=== PATIENT | male | born 1945 | race Caucasian/White ===

== ENCOUNTER 2018-05-20 19:06 | Inpatient (IN) ==
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
[2018-05-20 19:48] LABS: BASO# 0.02 X1000 (0.0-0.2); BASO% 0.2 % (0.0-0.8); EOS# 0.02 X1000 (0.0-0.7); EOS% 0.2 % (0.0-10.0); HEMOGLOBIN 13.3 g/dL (14.0-18.0); IMM GRAN# 0.01 X1000 (0.0-0.04); IMM GRAN% 0.1 % (0.0-0.5); LYMPH# 0.82 X1000 (1.2-3.4); LYMPH% 8.1 % (20.5-51.1); MCH 30.8 PG (27-31); MCHC 29.6 g/dL (33-37); MCV 104.2 FL (81-99); MONO# 1.17 X1000 (0.11-0.59); MONO% 11.5 % (1.7-9.3); MPV 9.4 FL (7.4-10.4); NEUT# 8.11 X1000 (1.4-6.5); NEUT% 79.9 % (42.2-75.2); PLT 140 X1000 (130-400); RBC 4.32 XMIL (4.7-6.1); RDW 13.8 % (11.5-14.5); WBC 10.15 X1000 (4.8-10.8)
[2018-05-20 20:02] LABS: ESTIMATED GFR > 60
[2018-05-20 20:03] LABS: BE 14.6 mmoll (-3.0-3.0); BLOOD TYPE ARTERIAL; HCO3-(ACT) 35.9 mmoll (20.0-26.0); METHB 1.2 % (0.0-1.5); O2(CT) 16.3 mL/dL (15.0-23.0); SAMPLE BLOOD; SAO2 86.6 % (95.0-100.0); THB 14.2 g/dL (11.5-17.4); pH(98.6) 7.46 (7.35-7.45)
[2018-05-20 20:04] LABS: AGAP 5; ALBUMIN 3.5 g/dL (3.5-5.0); ALKALINE PHOSPHATASE 87 U/L (32-122); BUN 8 mg/dL (8-22); CHLORIDE 93 mmol/L (98-107); COSMO 278; CREATININE 0.5 mg/dL (0.7-1.2); GLUCOSE 143 mg/dL (70-104); GOT 10 U/L (10-34); GPT 6 U/L (10-44); POTASSIUM 4.4 mmol/L (3.5-5.1); SODIUM 139 mmol/L (136-145); TCO2 41 mmol/L (25-35); TOTAL PROTEIN 6.8 g/dL (6.3-8.3)
--- NOTE | 2018-05-20 20:04 | Diag Imaging Result Doc PS360 ---
EXAM: CHEST-PORTABLE HISTORY: sob TECHNIQUE: Single view COMPARISON: 02/02/2016 FINDINGS: The lungs are well expanded. The heart is not enlarged. The vessels are not distended. There are increased markings in the mid right lung. No effusion identified. IMPRESSION: Small mid right lung infiltrate. Follow-up PA and lateral recommended after treatment. Electronically signed by Adelso Palafox 05/20/2018 8:02 PM
[2018-05-20 20:18] LABS: BE 14.9 mmoll (-3.0-3.0); BLOOD TYPE ARTERIAL; HCO3-(ACT) 36.1 mmoll (20.0-26.0); METHB 1.2 % (0.0-1.5); O2(CT) 15.9 mL/dL (15.0-23.0); SAMPLE BLOOD; SAO2 86.9 % (95.0-100.0); THB 13.8 g/dL (11.5-17.4); pH(98.6) 7.39 (7.35-7.45)
[2018-05-20 20:27] LABS: ALLEN TEST YES; MODALITY ROOM AIR; PCO2(98.6) 58 mmHg (35-45); PO2(98.6) 39 mmHg (60-100)
[2018-05-20 20:28] LABS: O2HB 82.4 % (95.0-99.0); PCO2(98.6) 72 mmHg (35-45); PO2(98.6) 43 mmHg (60-100)
[2018-05-20 20:29] LABS: ALLEN TEST YES; MODALITY ROOM AIR
[2018-05-20 20:30] LABS: BILIRUBIN URINE NEGATIVE (NEGATIVE); BLOOD URINE 4+ (NEGATIVE); CLARITY VERY CLOUDY (CLEAR); COLOR YELLOW; GLUCOSE URINE NEGATIVE (NEGATIVE); KETONE URINE TRACE mg/dL (NEGATIVE); LEUKOCYTES URINE 2+ (NEGATIVE); NITRITE URINE POSITIVE (NEGATIVE); PROTEIN URINE TRACE mg/dL (NEGATIVE); SP GRAVITY URINE 1.005; UROBILINOGEN URINE NORMAL
[2018-05-20 20:35] LABS: URINE RBC TNTC /HPF (<10); URINE WBC TNTC /HPF (<10)
[2018-05-20 20:36] LABS: URINE BACTERIA 4+ /HFP; URINE CAST NONE SEEN /LPF; URINE CRYSTAL NONE SEEN /HPF; URINE EPITHELIAL CELLS <10 /HPF (<10); URINE SOURCE CATH; URINE YEAST PRESENT /HPF
[2018-05-20 21:26] LABS: UR AMPHETAMINES QUAL NONE DETECTED (NONE DETECT); UR BARBITUATES QUAL NONE DETECTED (NONE DETECT); UR BENZODIAZEPIN QUAL PRESUMPTIVE POSITIVE (NONE DETECT); UR CANNABINOIDS QUAL PRESUMPTIVE POSITIVE (NONE DETECT); UR COCAINE QUAL NONE DETECTED (NONE DETECT); UR METHADONE QUAL NONE DETECTED (NONE DETECT); UR METHAMPHETAMINE QUAL NONE DETECTED (NONE DETECT); UR OPIATES QUAL PRESUMPTIVE POSITIVE (NONE DETECT); UR OXYCODONE QUAL PRESUMPTIVE POSITIVE (NONE DETECT); UR PCP QUAL NONE DETECTED (NONE DETECT); UR PROPOXYPHENE QUAL NONE DETECTED (NONE DETECT); UR TCA QUAL PRESUMPTIVE POSITIVE (NONE DETECT)
--- NOTE | 2018-05-20 21:52 | EKG Report ---
Test Performed on : 05/20/2018 8:24:32 PM Test Reason : emboli Blood Pressure : / mmHG Vent. Rate : 084 BPM Atrial Rate : 084 BPM P-R Int : 162 ms QRS Dur : 080 ms QT Int : 366 ms P-R-T Axes : 043 009 078 degrees QTc Int : 432 ms Normal sinus rhythm. Possible Anterior infarct , age undetermined Abnormal ECG When compared with ECG of 23-DEC-2012 22:09, No significant change was found Unconfirmed Result
[2018-05-20 21:58] LABS: INFLUENZA A NEGATIVE (NEGATIVE); INFLUENZA B NEGATIVE (NEGATIVE)
[2018-05-20] MEDS: ROCEPHIN 1 GM in NS 50 ML IV SCH (22:37)
[2018-05-20] MEDS ORDERED: ZITHROMAX 500 MG/NS 500 MG/250 ML IVPB IV SCH (23:01)
[2018-05-20] MEDS ORDERED: ROCEPHIN 1 GM in NS 50 ML IV SCH (23:01)
[2018-05-20] MEDS: ZITHROMAX 500 MG/NS 500 MG/250 ML IVPB IV SCH (23:28)
[2018-05-20] MEDS: NS 1,000 ML IV SCH (23:28)
[2018-05-21] MEDS ORDERED: COLACE PO PRN (08:30)
[2018-05-21] MEDS: SENOKOT PO SCH ×2 (09:54→21:18)
[2018-05-21] MEDS: TRINTELLIX PO SCH (09:54)
[2018-05-21] MEDS: LIORESAL PO SCH ×3 (09:55→21:19)
[2018-05-21] MEDS: NEURONTIN PO SCH ×4 (09:55→21:24)
[2018-05-21] MEDS: NS 1,000 ML IV SCH (10:03)
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
[2018-05-21] MEDS: ZOCOR PO SCH (21:19)
[2018-05-21] MEDS: SEROQUEL PO SCH (21:19)
[2018-05-21] MEDS: ROCEPHIN 1 GM in NS 50 ML IV SCH (21:19)
[2018-05-21] MEDS: ZITHROMAX 500 MG/NS 500 MG/250 ML IVPB IV SCH (21:20)
[2018-05-22] MEDS: LIORESAL PO SCH ×4 (02:21→21:09)
[2018-05-22] MEDS: NEURONTIN PO SCH ×4 (02:22→21:09)
[2018-05-22 06:19] LABS: HEMATOCRIT 44.8 % (42.0-52.0); HEMOGLOBIN 13.2 g/dL (14.0-18.0); MCHC 29.5 g/dL (33-37); MCV 101.8 FL (81-99); MPV 9.8 FL (7.4-10.4); RBC 4.4 XMIL (4.7-6.1); WBC 6.87 X1000 (4.8-10.8)
[2018-05-22 06:29] LABS: AGAP 9; BUN 6 mg/dL (8-22); CALCIUM 8.7 mg/dL (8.8-10.2); CHLORIDE 104 mmol/L (98-107); COSMO 296; CREATININE 0.3 mg/dL (0.7-1.2); ESTIMATED GFR > 60; GLUCOSE 133 mg/dL (70-104); POTASSIUM 3.9 mmol/L (3.5-5.1); SODIUM 149 mmol/L (136-145); TCO2 36 mmol/L (25-35)
[2018-05-22] MEDS: SYNTHROID PO SCH (06:34)
[2018-05-22 08:40] LABS: BE 12.7 mmoll (-3.0-3.0); BLOOD TYPE ARTERIAL; HCO3-(ACT) 34.6 mmoll (20.0-26.0); METHB 1.4 % (0.0-1.5); O2(CT) 17.5 mL/dL (15.0-23.0); PO2(98.6) 58 mmHg (60-100); SAMPLE BLOOD; SAO2 92.2 % (95.0-100.0); pH(98.6) 7.35 (7.35-7.45)
[2018-05-22 08:50] LABS: PCO2(98.6) 76 mmHg (35-45)
[2018-05-22 08:51] LABS: MODALITY CANNULA; O2HB 88.9 % (95.0-99.0)
[2018-05-22] MEDS ORDERED: DUONEB (A & A) INH PRN (08:51)
[2018-05-22 08:52] LABS: ALLEN TEST YES
[2018-05-22] MEDS: SENOKOT PO SCH ×2 (09:25→21:10)
[2018-05-22] MEDS: TRINTELLIX PO SCH (09:25)
[2018-05-22] MEDS: OXY IR PO PRN ×2 (09:38→14:09)
[2018-05-22] MEDS: D5W 1,000 ML IV SCH ×2 (11:08→21:55)
--- NOTE | 2018-05-22 11:18 | PROGRESS NOTE ---
DATE: 05/22/2018 SUBJECTIVE: Patient looks to be a little bit more lethargic, according to her who is at bedside. The patient reports also feeling tired. Denies any fever or chills. OBJECTIVE: Vital Signs: Temperature 97.5 degrees, heart rate 74, respiratory rate 18, blood pressure 116/61, O2 saturation 96% on Optiflow. General: This is a chronically ill-looking, 72- year-old male, lying in bed in no acute distress. HEENT: Head is normocephalic, atraumatic. Neck: No JVD noted. No carotid bruits. No lymphadenopathy. No thyromegaly. Cardiovascular: S1, S2 heard. No murmurs, gallops, or rubs. Regular rate and rhythm. Respiratory: Decreased breath sounds globally. There is some rhonchi in both pulmonary bases. Patient is not using any accessory muscles or having work of breathing. Abdomen: Soft, nondistended. Bowel sounds present. No organomegaly, and there is a suprapubic catheter noted with dark nazia urine. Extremities: No clubbing, cyanosis, or edema. There is muscle atrophy noted. Neurological: Patient is alert, oriented. Patient is quadriplegic. Some slight movements of the arms and legs. LABORATORY DATA: White cell count 6.97, hemoglobin 13.2, hematocrit 44.8, platelets 151,000. ABG shows pH 7.35 with pCO2 of 76, pO2 58, bicarbonate 34.6. BMP unremarkable except sodium 159. ASSESSMENT AND PLAN: 1. Acute hypercarbic respiratory failure. Patient used CPAP at home. Apparently, he was not using it recently because there is some air leaking. The patient refused to use BiPAP. CO2 is getting worse from 72 yesterday to 76 today. The patient is strongly advised to use BiPAP as much as he can. The patient acknowledged understanding, and said that he is going to try, and will continue with the same management. 2. Right middle lobe pneumonia. Patient is on Rocephin and azithromycin. White cell count is normal. We will continue to monitor. Patient is also on DuoNeb every 4 hours and supplemental oxygen. Now, he is requiring Optiflow. 3. Suprapubic catheter. Urine cultures still pending. We will continue with the same antibiotic management. 4. Quadriplegia with spasticity. Patient has baclofen pain pump. The patient is also on Neurontin. We will continue with the same management. 5. Chronic constipation. We will continue with home medications. 6. Disposition. We will continue to monitor this patient closely. We will check ABG tomorrow. We will go from there. Patient is supposed to start using BiPAP today as much as he can. cc: Gilbert Marrero MD
[2018-05-22] MEDS: DUONEB (A & A) INH SCH ×4 (11:41→23:19)
[2018-05-22] MEDS ORDERED: ZITHROMAX PO SCH (21:00)
[2018-05-22] MEDS: ZOCOR PO SCH (21:09)
[2018-05-22] MEDS: SEROQUEL PO SCH (21:09)
[2018-05-22] MEDS: ROCEPHIN 1 GM in NS 50 ML IV SCH (21:10)
[2018-05-23] MEDS: OXY IR PO PRN
[2018-05-23] MEDS: LIORESAL PO SCH ×3 (02:32→08:55)
[2018-05-23] MEDS: NEURONTIN PO SCH ×2 (02:32→02:45)
[2018-05-23] MEDS: D5W 1,000 ML IV SCH ×3 (02:44→20:50)
[2018-05-23] MEDS: DUONEB (A & A) INH SCH ×6 (04:08→23:24)
[2018-05-23] MEDS: SYNTHROID PO SCH (06:01)
[2018-05-23 06:15] LABS: BE 11.7 mmoll (-3.0-3.0); BLOOD TYPE ARTERIAL; HCO3-(ACT) 33.5 mmoll (20.0-26.0); METHB 1.2 % (0.0-1.5); O2(CT) 14.3 mL/dL (15.0-23.0); SAMPLE BLOOD; SAO2 80.7 % (95.0-100.0); THB 13.1 g/dL (11.5-17.4); pH(98.6) 7.24 (7.35-7.45)
[2018-05-23 06:26] LABS: PCO2(98.6) 101 mmHg (35-45)
[2018-05-23 06:27] LABS: ALLEN TEST YES; MODALITY HIGH FLOW NASAL CAN; PO2(98.6) 43 mmHg (60-100)
[2018-05-23 08:23] LABS: BE 11.9 mmoll (-3.0-3.0); BLOOD TYPE ARTERIAL; METHB 1.4 % (0.0-1.5); O2(CT) 16.5 mL/dL (15.0-23.0); PO2(98.6) 61 mmHg (60-100); SAMPLE BLOOD; SAO2 92.6 % (95.0-100.0); THB 13.2 g/dL (11.5-17.4)
[2018-05-23 08:26] LABS: MODALITY BI PAP
[2018-05-23 08:27] LABS: ALLEN TEST YES
[2018-05-23 08:29] LABS: O2HB 88.8 % (95.0-99.0)
[2018-05-23 08:30] LABS: PCO2(98.6) 108 mmHg (35-45)
[2018-05-23 08:32] LABS: pH(98.6) 7.22 (7.35-7.45)
[2018-05-23] MEDS ORDERED: TEFLARO 600 MG in NS 250 ML IV SCH (08:45)
[2018-05-23] MEDS ORDERED: VERSED ONE (08:56)
[2018-05-23] MEDS ORDERED: QUELICIN ONE (08:57)
[2018-05-23] MEDS: DIPRIVAN 1% 1,000 MG/100 ML BOTTLE IV SCH ×3 (09:18→23:44)
[2018-05-23 09:42] LABS: BASO# 0.04 X1000 (0.0-0.2); BASO% 0.5 % (0.0-0.8); EOS# 0.27 X1000 (0.0-0.7); EOS% 3.2 % (0.0-10.0); HEMATOCRIT 43.8 % (42.0-52.0); HEMOGLOBIN 12.6 g/dL (14.0-18.0); IMM GRAN# 0.01 X1000 (0.0-0.04); IMM GRAN% 0.1 % (0.0-0.5); LYMPH# 0.58 X1000 (1.2-3.4); LYMPH% 6.8 % (20.5-51.1); MCH 30.1 PG (27-31); MCHC 28.8 g/dL (33-37); MCV 104.8 FL (81-99); MONO# 0.94 X1000 (0.11-0.59); MPV 9.4 FL (7.4-10.4); NEUT# 6.71 X1000 (1.4-6.5); NEUT% 78.4 % (42.2-75.2); PLT 149 X1000 (130-400); RBC 4.18 XMIL (4.7-6.1); WBC 8.55 X1000 (4.8-10.8)
--- NOTE | 2018-05-23 09:44 | PROGRESS NOTE ---
DATE: 05/23/2018 SUBJECTIVE: We were called by nurse that patient was more lethargic, and he was refusing to use BiPAP. Overnight, he was restless. OBJECTIVE: Vital Signs: Temperature 97.3 degrees, heart rate 82, respiratory rate 18, blood pressure 112/47, O2 saturation 95% on BiPAP machine. General: This is a chronically ill- looking, 72-year-old male, lying in bed, in no acute distress. HEENT : Head is normocephalic and atraumatic. Mucous membranes dry. Neck: No JVD noted. No carotid bruits. No lymphadenopathy. No thyromegaly. Cardiovascular: S1, S2 heard. Tachycardic. No murmurs, gallops, or rubs. Regular rate and rhythm. Respiratory: There is rhonchi and wheezing noted in both anterior and posterior pulmonary madden, mostly noted in both bases. Patient is not using any accessory muscles or having work of breathing. Abdomen: Soft. A little bit distended, but nontender to palpation. Bowel sounds present. No organomegaly. There is a suprapubic catheter noted with dark nazia urine still. Extremities: No clubbing, cyanosis, or edema. There is some muscle atrophy noted. Neurological: Patient is definitely more obtunded and sleepier. Patient is quadriplegic. LABORATORY DATA: 1. CBC and BMP still pending. 2. ABG showed this morning at 5:49: pCO2 7.24, pO2 101, pO2 of 43 that was on high-flow nasal cannula by Optiflow. After one hour of BiPAP, the pH was 7.22, pO2 108 pO2 61 with oxyhemoglobin 88. ASSESSMENT AND PLAN: 1. Acute hypercarbic respiratory failure. Unfortunately, this patient continues to get worse. CO2 is much more elevated, and the patient has respiratory acidosis. Even 1 hour after BiPAP, he is not responding properly to this device, so we have decided to intubate this patient. We will call ER to help us intubate him. At this point, we will continue monitoring this patient in the intensive care unit. We will try to send this patient to [facility] to have pulmonary to be consulted and to follow this patient as well. 2. Right middle lobe pneumonia. The patient has been on Rocephin and azithromycin since admission, and considering that clinically he is declining, we are going to change antibiotics to vancomycin and Zosyn. We will continue to monitor. 3. Suprapubic catheter. Urine culture is still pending. They reported only gram-negative rods. At this point, we will continue with Zosyn. 4. Quadriplegia with spasticity. Patient has baclofen pain pump. Patient is on Neurontin. We will continue with the same medications. 5. Chronic constipation, aware. We will continue with the MiraLAX as needed. 6. Disposition. At this point, we are going to intubate this patient because of acute hypercarbic respiratory failure with severe hypercarbia. We will continue to monitor this patient in the intensive care unit, and we will all inform warehouse assembly worker about this patient to try to get a bed for transfer to [facility] as soon as possible. In the meantime, we will continue to monitor this patient here. CRITICAL CARE TIME: 50 minutes. cc: Gilbert Marrero MD MTDD
[2018-05-23 09:50] LABS: AGAP 6; BUN 4 mg/dL (8-22); CALCIUM 8.8 mg/dL (8.8-10.2); CHLORIDE 96 mmol/L (98-107); COSMO 279; CREATININE 0.5 mg/dL (0.7-1.2); ESTIMATED GFR > 60; GLUCOSE 150 mg/dL (70-104); POTASSIUM 5.8 mmol/L (3.5-5.1); SODIUM 140 mmol/L (136-145); TCO2 38 mmol/L (25-35)
--- NOTE | 2018-05-23 10:01 | Diag Imaging Result Doc PS360 ---
EXAM: CHEST-PORTABLE HISTORY: intubation TECHNIQUE: Single view of the chest was performed portably. COMPARISON: 05/20/2018 FINDINGS: There is an endotracheal tube in appropriate position. Nasogastric tube courses to the stomach. Heart size is within normal limits. There is increasing volume loss and opacification of the right upper lobe. Left lung remains clear. No effusions. No pneumothorax. There is surgical hardware lower cervical spine. IMPRESSION: Satisfactory endotracheal tube placement. Increasing consolidation and volume loss right upper lobe. Electronically signed by Frida Lion 05/23/2018 9:58 AM
[2018-05-23] MEDS ORDERED: VANCOMYCIN IV PER PHARMACY MISC SCH ×2 (10:15→18:00)
[2018-05-23 10:24] LABS: LYMPHS 8 % (21-51); MONO 10 % (1-9); SEGS 82 % (42-75)
[2018-05-23 10:25] LABS: ANISOCYTOSIS 1+
[2018-05-23] MEDS ORDERED: VANCOMYCIN 1,800 MG in NS 250 ML IV ONE (11:00)
--- NOTE | 2018-05-23 12:45 | Diag Imaging Result Doc PS360 ---
EXAM: CHEST-PORTABLE 05/23/2018 HISTORY: NG TUBE PLACEMENT TECHNIQUE: AP portable at 1202 COMMENT: The NG tube tip is not visible below the diaphragm presumably in the stomach. IMPRESSION: NG tube in the stomach or proximal small bowel. Electronically signed by Harpreet No 05/23/2018 12:42 PM
--- NOTE | 2018-05-23 12:45 | Diag Imaging Result Doc PS360 ---
EXAM: CHEST-PORTABLE 05/23/2018 HISTORY: central line placement TECHNIQUE: AP portable at 1155 COMMENT: There is platelike atelectasis over the right base which was not present on 05/23/2018. There is an endotracheal tube with its tip at thoracic inlet and an NG tube which passes below the diaphragm. There is a left internal jugular central venous catheter with its tip at the confluence of the brachiocephalic veins. No evidence of pneumothorax is present. IMPRESSION: Worsened right lower lobe atelectasis. Electronically signed by Harpreet No 05/23/2018 12:43 PM
[2018-05-23] MEDS: ZOSYN 3.375 GM in NS 50 ML IV SCH ×3 (13:18→20:50)
[2018-05-23 15:06] LABS: BE 16.8 mmoll (-3.0-3.0); BLOOD TYPE ARTERIAL; METHB 1.6 % (0.0-1.5); O2(CT) 16.9 mL/dL (15.0-23.0); O2HB 96.4 % (95.0-99.0); PCO2(98.6) 50 mmHg (35-45); PO2(98.6) 177 mmHg (60-100); SAMPLE BLOOD; SAO2 99.3 % (95.0-100.0); SRATE 16 BPM; THB 12.2 g/dL (11.5-17.4); TVOL 500 mL; pH(98.6) 7.53 (7.35-7.45)
[2018-05-23 15:13] LABS: ALLEN TEST YES; MODALITY VENTILATOR
[2018-05-23] MEDS ORDERED: DUONEB (A & A) INH PRN (17:51)
[2018-05-23] MEDS: SODIUM CHLORIDE 0.9% INJ SCH (23:27)
[2018-05-23] MEDS: PROTONIX IV SCH (23:27)
[2018-05-24] MEDS: DUONEB (A & A) INH SCH ×6 (03:51→23:56)
[2018-05-24] MEDS: ZOSYN 3.375 GM in NS 50 ML IV SCH ×4 (03:54→21:45)
[2018-05-24] MEDS: DIPRIVAN 1% 1,000 MG/100 ML BOTTLE IV SCH ×3 (03:54→17:18)
[2018-05-24] MEDS: D5W 1,000 ML IV SCH ×3 (03:54→11:33)
[2018-05-24 04:50] LABS: BASO# 0.03 X1000 (0.0-0.2); BASO% 0.5 % (0.0-0.8); EOS# 0.32 X1000 (0.0-0.7); HEMATOCRIT 42.5 % (42.0-52.0); HEMOGLOBIN 12.9 g/dL (14.0-18.0); LYMPH# 0.97 X1000 (1.2-3.4); LYMPH% 15.2 % (20.5-51.1); MCH 30.4 PG (27-31); MCHC 30.4 g/dL (33-37); MONO# 0.72 X1000 (0.11-0.59); MONO% 11.3 % (1.7-9.3); MPV 9.6 FL (7.4-10.4); NEUT# 4.34 X1000 (1.4-6.5); PLT 143 X1000 (130-400); RBC 4.25 XMIL (4.7-6.1); RDW 13.6 % (11.5-14.5); WBC 6.38 X1000 (4.8-10.8)
[2018-05-24 04:55] LABS: ALLEN TEST YES; BE 12.9 mmoll (-3.0-3.0); BLOOD TYPE ARTERIAL; METHB 1.5 % (0.0-1.5); O2(CT) 18.4 mL/dL (15.0-23.0); O2HB 96.1 % (95.0-99.0); PO2(98.6) 157 mmHg (60-100); SAMPLE BLOOD; SAO2 98.7 % (95.0-100.0); SRATE 12 BPM; THB 13.4 g/dL (11.5-17.4); TVOL 500 mL; pH(98.6) 7.42 (7.35-7.45)
[2018-05-24 04:58] LABS: MODALITY VENTILATOR; PCO2(98.6) 62 mmHg (35-45)
[2018-05-24 05:15] LABS: AGAP 12; BUN 3 mg/dL (8-22); CALCIUM 8.5 mg/dL (8.8-10.2); CHLORIDE 98 mmol/L (98-107); COSMO 283; CREATININE 0.4 mg/dL (0.7-1.2); ESTIMATED GFR > 60; GLUCOSE 162 mg/dL (70-104); SODIUM 142 mmol/L (136-145); TCO2 32 mmol/L (25-35)
[2018-05-24] MEDS: LOVENOX SUBQ SCH (05:42)
--- NOTE | 2018-05-24 07:41 | Diag Imaging Result Doc PS360 ---
EXAM: CHEST-PORTABLE INDICATION: pt on ventilator TECHNIQUE: One view COMPARISON: 05/23/2018 FINDINGS: Support tubes and lines are in stable positions. The right basilar atelectasis has improved during the interval. No new consolidation is identified. Cardiac silhouette is stable. IMPRESSION: Improvement of right basilar atelectasis. Stable chest, otherwise. Electronically signed by Blas York 05/24/2018 7:39 AM
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
--- NOTE | 2018-05-24 16:23 | PULMONOLOGY CONSULTATION ---
DATE: 05/24/2018 REASON FOR CONSULTATION: Respiratory failure. HISTORY OF PRESENT ILLNESS: Mr. 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 He has a chronic caregiver. The patient developed increased cough with increased shortness of breath along with progressive hypersomnolence. The patient was evaluated and admitted to [facility] 4 days ago. The patient had progressive hypoxemic and hypercapnic respiratory failure and failed BiPAP and was intubated yesterday evening and transferred to this hospital for pulmonary management. PAST MEDICAL HISTORY/PROBLEM LIST: 1. 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 The patient does not have a tracheostomy site suggesting he was not difficult to wean from mechanical ventilation. 2. Gastroesophageal reflux. 3. COPD with ongoing tobacco use. 4. Hypothyroidism. 5. Chronic pain syndrome. 6. Dyslipidemia. 7. Status post appendectomy. 8. Status post suprapubic catheter placement. SOCIAL HISTORY: Patient lives with his . He does have a caregiver that is currently at his bedside. He does smoke. No alcohol or illicit drug use listed. ALLERGIES: No known allergies. FAMILY HISTORY: Not immediately available for review. REVIEW OF SYSTEMS: Cannot be obtained except for those as outlined in the HPI. PHYSICAL EXAMINATION: General: Reveals a thin white male with some contractures of his upper extremities. By report, he has some limited movement of his upper and lower extremities. BP 143/74, heart rate 61, respiratory rate 12, oxygen saturation 99% on mechanical ventilation. HEENT: Pupils are equal and reactive. Oropharynx is clear. Neck: Supple. Chest: Reveals scattered rhonchi bilaterally. Cardiac: S1-S2. Abdomen: Scaphoid and soft. Good bowel sounds. Extremities: Revealed muscle wasting. LABORATORIES: Chest x-ray reveals right basilar pneumonia with some marginal improvement compared to yesterday afternoon. Sputum cultures are pending. White blood count 6.38, hemoglobin 12.9, platelet count 143,000. Arterial blood gas prior to intubation pH 7.22, pCO2 of 108, PO2 of 61. Arterial blood gas this morning, pH 7.42, pCO2 of 62, PO2 of 157. Sodium 142, potassium 4.0, chloride 98, bicarbonate 32, BUN 3, creatinine 0.4. TSH. 0.39. IMPRESSION: A 72-year-old with history of spinal cord injury, tobacco use with pneumonia, acute hypoxemic and acute hypercapnic respiratory failure on the background of chronic hypoxemic and chronic hypercapnic respiratory failure, ongoing tobacco use, urinary tract infection. RECOMMENDATIONS: 1. Continue ventilatory support pending improvement in chest radiograph. 2. Continue broad-spectrum antibiotics for his pneumonia and his urinary tract infection. 3. Wean mechanical ventilation as tolerated. We will attempt to prevent overventilation which will make it more difficult to wean and extubate patient. 4. Continue sedation for comfort. 5. Initiate tube feeds to prevent protein calorie malnutrition. cc: Aj Denise MD
[2018-05-24] MEDS ORDERED: VANCOMYCIN 1,500 MG in NS 250 ML IV SCH (17:00)
[2018-05-24] MEDS: VANCOMYCIN 1,500 MG in NS 250 ML IV SCH (17:23)
[2018-05-24] MEDS: MUCOMYST 20% INH SCH (20:35)
[2018-05-24] MEDS: PROTONIX IV SCH (21:45)
[2018-05-24] MEDS: SODIUM CHLORIDE 0.9% INJ SCH (21:45)
[2018-05-25] MEDS: DIPRIVAN 1% 1,000 MG/100 ML BOTTLE IV SCH ×4 (00:21→21:26)
[2018-05-25] MEDS: ZOSYN 3.375 GM in NS 50 ML IV SCH ×4 (02:33→21:25)
[2018-05-25] MEDS: DUONEB (A & A) INH SCH ×6 (03:57→23:42)
[2018-05-25 05:20] LABS: ALLEN TEST YES; BE 11.6 mmoll (-3.0-3.0); BLOOD TYPE ARTERIAL; METHB 1.2 % (0.0-1.5); O2(CT) 14.3 mL/dL (15.0-23.0); O2HB 96.1 % (95.0-99.0); PCO2(98.6) 45 mmHg (35-45); PO2(98.6) 95 mmHg (60-100); SAMPLE BLOOD; SAO2 98.8 % (95.0-100.0); SRATE 8 BPM; THB 10.5 g/dL (11.5-17.4); TVOL 600 mL; pH(98.6) 7.51 (7.35-7.45)
[2018-05-25 05:21] LABS: MODALITY VENTILATOR
[2018-05-25] MEDS: LOVENOX SUBQ SCH (05:40)
[2018-05-25 05:55] LABS: BASO# 0.02 X1000 (0.0-0.2); BASO% 0.2 % (0.0-0.8); EOS# 0.15 X1000 (0.0-0.7); EOS% 1.4 % (0.0-10.0); HEMATOCRIT 39.9 % (42.0-52.0); HEMOGLOBIN 12.5 g/dL (14.0-18.0); LYMPH# 0.69 X1000 (1.2-3.4); LYMPH% 6.5 % (20.5-51.1); MCH 30.3 PG (27-31); MCHC 31.3 g/dL (33-37); MCV 96.6 FL (81-99); MONO# 1.29 X1000 (0.11-0.59); MONO% 12.2 % (1.7-9.3); MPV 9.7 FL (7.4-10.4); NEUT% 79.7 % (42.2-75.2); PLT 165 X1000 (130-400); RBC 4.13 XMIL (4.7-6.1); RDW 13.9 % (11.5-14.5); WBC 10.55 X1000 (4.8-10.8)
[2018-05-25 06:45] LABS: MAGNESIUM 1.9 mg/dL (1.5-2.7); PHOSPHORUS 2.1 mg/dL (2.7-4.5)
--- NOTE | 2018-05-25 06:49 | PROGRESS NOTE ---
DATE: 05/25/2018 SUBJECTIVE: This morning Mr. Baeza continues to be intubated but stable. Per the nursing staff, there were no changes overnight. OBJECTIVE: Vital Signs: Blood pressure is 93/48, pulse 76, respirations 18, and temperature is 98.6 degrees. General: Mr. Baeza is a 72-year-old gentleman. He is in bed still intubated. Mucosa is pink and moist. Anicteric. Acyanotic. Neck: Supple. Chest: Good air entry bilateral. No crepitations. No rhonchi. Cardiovascular: Regular rate and rhythm. No murmurs, no rubs, no gallops. Abdomen: Soft. Nontender. There is an old surgical scar on the right flank. There is also a generator pocket on the left lower abdomen, possibly a baclofen pump. There is a super catheter in place. Extremities: No pedal edema. STUCCO APPLICATOR: Patient is currently on propofol, but will grimace to pain. Pupils are equal and they are reactive. LABORATORY DATA: WBC is 10.55, hemoglobin is 12.5, platelet count of 165,000. Chemistry is not ready at the time of the dictation. A chest x-ray which was done early this morning is still pending the official report. However, it appears there might be some perihilar infiltrates on the right. Otherwise, I do not see any effusions or any other acute abnormality. Lines and tubes are in place. CURRENT MEDICATIONS: 1. DuoNeb. 2. Vancomycin per pharmacy protocol. 3. Zosyn 3.375 q.6. 4. Propofol. ASSESSMENT: 1. Acute on chronic hypercarbic respiratory failure. The patient is currently intubated. PCO2 this morning is down to 45. 2. Acute hypoxemic respiratory failure, improved with mechanical ventilation. 3. 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 4. Providencia stuartii urinary tract infection. We will continue with the current antibiotics. 5. Right middle lobe pneumonia. We will continue with antibiotics. 6. Polysubstance use. Patient's UDS was positive for opioids, OxyContin, tricyclic, benzodiazepine, and cannabinoids. 7. Protein calorie malnutrition. Patient is currently on tube feedings and seems to be tolerating well. In general, I think Mr. Baeza is doing fairly okay. We will be pending on pulmonary medicine evaluation today, and see if we can start spontaneous breathing trial. cc: Vivek Mills MD MTDD
[2018-05-25 06:50] LABS: AGAP 14; BUN 9 mg/dL (8-22); CALCIUM 8.4 mg/dL (8.8-10.2); CHLORIDE 100 mmol/L (98-107); COSMO 292; CREATININE 0.9 mg/dL (0.7-1.2); ESTIMATED GFR > 60; GLUCOSE 180 mg/dL (70-104); POTASSIUM 2.7 mmol/L (3.5-5.1); SODIUM 145 mmol/L (136-145); TCO2 31 mmol/L (25-35)
--- NOTE | 2018-05-25 07:18 | Diag Imaging Result Doc PS360 ---
EXAM: CHEST-PORTABLE HISTORY: respiratory failure TECHNIQUE: Portable chest single view COMPARISON: 05/24/2018 FINDINGS: The lungs remain well expanded. No change in the endotracheal tube nasogastric tube, or left jugular line. No pneumothorax. No cardiomegaly. There are infiltrates in the medial right lower lobe. No pleural effusions identified. IMPRESSION: Stable chest. Electronically signed by Adelso Palafox 05/25/2018 7:16 AM
[2018-05-25] MEDS: MUCOMYST 20% INH SCH ×2 (07:50→19:33)
[2018-05-25] MEDS ORDERED: MAGNESIUM SULFATE 2 GM/S.W.I. 2 GM/50 ML IVPB IV ONE (08:30)
[2018-05-25] MEDS ORDERED: POTASSIUM PHOSPHATE 30 MEQ in NS 250 ML IV ONE (09:30)
[2018-05-25] MEDS: D5W 1,000 ML IV SCH (10:38)
--- NOTE | 2018-05-25 14:27 | PULMONOLOGY PROGRESS NOTE ---
DATE: 05/25/2018 SUBJECTIVE: The patient is sedated on mechanical ventilation. He appears to be comfortable. OBJECTIVE: The patient has been afebrile for the last 24 hours. Blood pressure 92/53, heart rate 59, respiratory rate 14, oxygen saturation 100% on 35% FiO2. HEENT: Pupils are equal and reactive. Oropharynx has endotracheal tube in place. Copious amounts of secretions can be suctioned from the endotracheal tube. Neck: Is supple. Chest: Reveals scattered rhonchi bilaterally. Cardiac: S1-S2. Abdomen: Soft with positive bowel sounds. No evidence of hepatosplenomegaly. Neurologic Exam: Unchanged. LABORATORIES: Chest x-ray reveals persistent infiltrates in the medial right base. Sputum cultures reveal no new data. White blood count 10.55, hemoglobin 12.5, platelet count 165,000. Sodium 145, potassium 2.7, chloride 100, bicarbonate 31, BUN 9, creatinine 0.9, phosphorus 2.1. Arterial blood gas reveals a pH 7.51, pCO2 of 45, PO2 of 95. IMPRESSION: 72-year-old with quadriplegia, pneumonia, acute hypoxemic and acute hypercapnic respiratory failure. The patient has ongoing tobacco use. He has an active urinary tract infection. He continues to have copious amounts of sputum which will delay weaning and extubation. RECOMMENDATION: 1. Continue ventilatory support with suctioning for increased bronchial secretions. 2. Continue broad-spectrum antibiotics. 3. Continue tube feeds for nutrition support. 4. Continue comfort measures such as sedation. 5. Continue gastric acid suppression and DVT prophylaxis. 6. Daily weaning evaluation. 7. Time spent in critical care 30+ minutes. cc: Aj Denise MD
[2018-05-25] MEDS ORDERED: NS 500 ML IV ONE ×2 (16:02→22:10)
[2018-05-25] MEDS ORDERED: LEVOPHED 8 MG in D5 1/2 NS 250 ML IV SCH (16:15)
[2018-05-25] MEDS ORDERED: NS 50 ML ONE (19:28)
[2018-05-25] MEDS: PROTONIX IV SCH (21:25)
[2018-05-26] MEDS: VANCOMYCIN 1,500 MG in NS 250 ML IV SCH ×2
[2018-05-26] MEDS: DIPRIVAN 1% 1,000 MG/100 ML BOTTLE IV SCH ×3 (03:00→18:20)
[2018-05-26] MEDS: ZOSYN 3.375 GM in NS 50 ML IV SCH ×4 (03:00→20:42)
[2018-05-26] MEDS: DUONEB (A & A) INH SCH ×6 (03:50→22:57)
[2018-05-26 04:41] LABS: ALLEN TEST YES; BE 8.5 mmoll (-3.0-3.0); BLOOD TYPE ARTERIAL; HCO3-(ACT) 31.4 mmoll (20.0-26.0); METHB 1.3 % (0.0-1.5); O2(CT) 15.3 mL/dL (15.0-23.0); PCO2(98.6) 43 mmHg (35-45); PO2(98.6) 64 mmHg (60-100); SAMPLE BLOOD; SAO2 93.8 % (95.0-100.0); SRATE 6 BPM; THB 11.9 g/dL (11.5-17.4); TVOL 700 mL; pH(98.6) 7.49 (7.35-7.45)
[2018-05-26 04:43] LABS: MODALITY VENTILATOR
[2018-05-26] MEDS: LOVENOX SUBQ SCH (05:25)
--- NOTE | 2018-05-26 07:46 | Diag Imaging Result Doc PS360 ---
EXAM: CHEST-PORTABLE - 05/26/2018 HISTORY: respiratory failure TECHNIQUE: Portable chest COMPARISON: 05/25/2018 FINDINGS: Endotracheal tube, nasogastric tube, and central venous catheter remain in place. Heart size is normal. There has been apparent decrease in infiltrate at the medial right base. There is apparent mild interstitial infiltrate at the lateral left base. There is no pleural effusion or pneumothorax identified. IMPRESSION: Decrease in infiltrate at medial right base. Mild interstitial infiltrate at lateral left base. Electronically signed by Jamin Kearney 05/26/2018 7:43 AM
[2018-05-26] MEDS: MUCOMYST 20% INH SCH ×2 (07:57→18:57)
[2018-05-26] MEDS: NS 1,000 ML IV SCH ×2 (09:08→20:42)
[2018-05-26 10:18] LABS: HEMATOCRIT 37.1 % (42.0-52.0); HEMOGLOBIN 11.6 g/dL (14.0-18.0); MCH 30.1 PG (27-31); MCHC 31.3 g/dL (33-37); MCV 96.1 FL (81-99); MPV 10.1 FL (7.4-10.4); RBC 3.86 XMIL (4.7-6.1); RDW 14.8 % (11.5-14.5); WBC 9.57 X1000 (4.8-10.8)
[2018-05-26] MEDS: SOLU-CORTEF IV SCH ×2 (10:31→18:20)
[2018-05-26 10:44] LABS: CALCIUM 7.1 mg/dL (8.8-10.2); CREATININE 1.9 mg/dL (0.7-1.2)
--- NOTE | 2018-05-26 11:01 | PROGRESS NOTE ---
DATE: 05/26/2018 SUBJECTIVE: This morning Mr. Baeza continues to be intubated. I understand his blood pressures have been in the lower zone, so he was given a bolus of 500 yesterday. It seems to have improved. Last night he got another bolus of 500 and blood pressure got slightly better. The patient has not been started yet on pressors. However, there is an order if he needs. OBJECTIVE: Vital Signs: Blood pressure is currently 93/53, pulse of 78, respirations 16, temperature is 98.5 degrees. General: Mr. Baeza is a 72-year-old gentleman. He is in bed. He is intubated. HEENT: Mucosa is pink and moist. Anicteric. Acyanotic. Neck: Supple. Respiratory: There is good air entry bilateral. Transmitted sounds from the ventilator are auscultated. Cardiovascular: Regular rate and rhythm. No murmurs. No rubs. No gallops. GI: Abdomen is soft. There is an old surgical scar on the right flank. There is also a generator pocket on the left lower abdomen, possibly for a baclofen pump. Suprapubic catheter is in place. Extremities: No pedal edema. ROUTE AGENT: Patient is on propofol, but seems to be able to follow some basic commands. He was able to open his eyes to command. Pupils are equal and they are reactive. LABORATORY DATA: WBC is 9.57, hemoglobin is 11.6, platelet count of 158,000. ABGs have all been reviewed. Chemistry not ready yet. Cortisol level was 13.9. CURRENT MEDICATIONS: Have also been reviewed. 1. Albuterol. 2. Lovenox 40 subcutaneous daily. 3. Vancomycin per pharmacy protocol. 4. Protonix 40 mg IV q.24. 5. Zosyn 3.375 q.6 hours, today is day 3 on this. IMAGING STUDIES: A chest x-ray this morning continues to show infiltrate in the medial right base, but there is some decrease to that. There might be a mild interstitial infiltrate at the lateral left base. MICROBIOLOGY DATA: So far blood cultures have been 48 hours negative. Urine culture was positive for Providencia stuartii. ASSESSMENT AND PLAN: 1. Acute on chronic hypercarbic respiratory failure, improved. 2. Acute hypoxemic respiratory failure. Patient continues to be on mechanical ventilation. Pulmonary Medicine is on board and the patient is currently on very low FiO2. 3. 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 4. Septic shock, presumably a combination of pneumonia and urinary tract infection. We will continue with fluid resuscitation. 5. Providencia stuartii urinary tract infection. 6. Right middle lobe pneumonia. 7. Polysubstance use with urine drug screen positive for opioids, OxyContin, oxycodone, tricyclic, benzodiazepines, and cannabinoids. 8. Protein calorie malnutrition. The patient is tolerating tube feedings. 9. Persistent hypotension. We think this is presumably due to the current sepsis. However, it appears that the patient's cortisol level is 13.9, which will be relatively low for the level of stress that the patient is currently undergoing. I think patient is currently relatively adrenal insufficient and we will supplement him with hydrocortisone. cc: Vivek Mills MD MTDD
--- NOTE | 2018-05-26 14:54 | PULMONOLOGY PROGRESS NOTE ---
DATE: 05/26/2018 SUBJECTIVE: Patient is arousable but will not follow commands. He remains on mechanical ventilation. OBJECTIVE: General: The patient has been afebrile for the last 24 hours. He continues to have moderate secretions from his endotracheal tube. Vital signs: Blood pressure 106/66, heart rate 96, respiratory rate 14, oxygen saturation 99%. HEENT: Pupils are equal and reactive. Oropharynx is clear. Neck: Supple. Chest: Reveals scattered rhonchi bilaterally. Cardiac: S1, S2. Abdomen: Soft with good bowel sounds. Extremities: Reveal trace edema. LABORATORIES: Chest x-ray reveals slight improvement at the right base. Sodium 145, potassium 3.0, chloride 101, bicarbonate 29, BUN 18, creatinine 1.9. Cortisols 13.9. No new microbiology data. IMPRESSION: This is a 72-year-old with quadriplegia, pneumonia, ongoing tobacco use, with acute hypoxemic and acute hypercapnic respiratory failure. The patient's oxygen requirements are appropriate for extubation, but he continues to have significant increased sputum production. I am concerned that he will not be able to adequately clear his secretions and ultimately fail extubation. RECOMMENDATION: 1. Continue ventilatory support until bronchial secretions decrease and chest x-ray improves. 2. Continue broad-spectrum antibiotics. 3. Continue tube feeds. 4. Agree with steroids for marginal cortisol level as ordered by Dr. Mills. 5. Continue gastric acid suppression and DVT prophylaxis. CRITICAL CARE TIME: Time spent in critical care, 30+ minutes. cc: Aj Denise MD
[2018-05-26] MEDS: PROTONIX IV SCH (20:43)
[2018-05-27] MEDS: PROTONIX IV SCH ×2 (01:30→22:23)
[2018-05-27] MEDS: SOLU-CORTEF IV SCH ×3 (01:32→17:46)
[2018-05-27] MEDS: DIPRIVAN 1% 1,000 MG/100 ML BOTTLE IV SCH (01:32)
[2018-05-27] MEDS: ZOSYN 3.375 GM in NS 50 ML IV SCH ×3 (01:33→08:28)
[2018-05-27] MEDS: DUONEB (A & A) INH SCH ×6 (03:33→22:50)
[2018-05-27] MEDS: LOVENOX SUBQ SCH ×2 (04:43→06:08)
[2018-05-27 04:46] LABS: ALLEN TEST YES; BE 6.5 mmoll (-3.0-3.0); BLOOD TYPE ARTERIAL; HCO3-(ACT) 29.9 mmoll (20.0-26.0); METHB 1.1 % (0.0-1.5); O2(CT) 17.9 mL/dL (15.0-23.0); O2HB 94.6 % (95.0-99.0); PCO2(98.6) 34 mmHg (35-45); PO2(98.6) 76 mmHg (60-100); SAMPLE BLOOD; SAO2 97.3 % (95.0-100.0); SRATE 6 BPM; THB 13.4 g/dL (11.5-17.4); TVOL 700 mL; pH(98.6) 7.54 (7.35-7.45)
[2018-05-27 04:48] LABS: MODALITY VENTILATOR
--- NOTE | 2018-05-27 06:41 | Diag Imaging Result Doc PS360 ---
EXAM: CHEST-PORTABLE HISTORY: respiratory failure TECHNIQUE: Portable chest single view COMPARISON: 05/26/2018 FINDINGS: There is an endotracheal tube and nasogastric tube in good position. These are unchanged. No change in the left jugular line. The lungs are well expanded. No cardiomegaly. No pleural effusions identified. Mild increased interstitial markings in the lower lungs have an appearance similar to the prior study. IMPRESSION: Stable chest. Electronically signed by Adelso Palafox 05/27/2018 6:39 AM
[2018-05-27 06:53] LABS: HEMATOCRIT 34.4 % (42.0-52.0); HEMOGLOBIN 10.8 g/dL (14.0-18.0); MCH 29.6 PG (27-31); MCHC 31.4 g/dL (33-37); MCV 94.2 FL (81-99); RBC 3.65 XMIL (4.7-6.1); RDW 14.7 % (11.5-14.5); WBC 6.88 X1000 (4.8-10.8)
[2018-05-27 07:37] LABS: CALCIUM 7.8 mg/dL (8.8-10.2); CREATININE 1.9 mg/dL (0.7-1.2); POTASSIUM 2.9 mmol/L (3.5-5.1)
[2018-05-27] MEDS ORDERED: MAGNESIUM SULFATE 2 GM/S.W.I. 2 GM/50 ML IVPB IV ONE (07:51)
[2018-05-27] MEDS: MUCOMYST 20% INH SCH ×2 (08:02→19:15)
[2018-05-27] MEDS: D5 1/2 NS 1,000 ML IV SCH ×2 (08:28→22:09)
[2018-05-27] MEDS: POTASSIUM CHLORIDE 20 MEQ/SWI 20 MEQ/100 ML IVPB IV SCH ×2 (08:43→09:35)
[2018-05-27] MEDS: ZYVOX 600 MG/D5W 600 MG/300 ML IVPB IV SCH ×2 (10:51→22:23)
[2018-05-27] MEDS: MAXIPIME 1 GM in NS 50 ML IV SCH ×2 (10:51→22:23)
--- NOTE | 2018-05-27 11:13 | PULMONOLOGY PROGRESS NOTE ---
DATE: 05/27/2018 SUBJECTIVE: The patient's propofol and tube feeds are currently on hold. He is arousable to alert. He has been initiated on a spontaneous breathing trial. His endotracheal secretions were objectively less upon suctioning by this practitioner. OBJECTIVE: Vital Signs: Blood pressure 119/62, heart rate 83, respiratory rate 12, oxygen saturation 93%. HEENT: Pupils are equal and reactive. Oropharynx is clear. Neck: Supple. Chest: Reveals occasional rhonchi bilaterally. Cardiac Examination: S1-S2. Abdomen: Soft and without hepatosplenomegaly. Extremities: Without edema. Laboratories: White blood count 6.88, hemoglobin 10.8, platelet count 187,000. Chemistries: Sodium 147, potassium 2.9, chloride 105, bicarbonate 26, BUN 22, creatinine 1.9. Arterial blood gas with pH 7.54, hemoglobin 34, PO2 of 76. Sputum cultures reveal no growth. Chest x-ray reveals mild bibasilar infiltrates, unchanged from yesterday. IMPRESSION: A 52-year-old with quadriplegia, pneumonia, ongoing tobacco use, acute hypoxemic and acute hypercapnic respiratory failure. The patient's sputum production has diminished. He is mildly hypernatremic and has been initiated on free water by Dr. Mills. RECOMMENDATIONS: 1. Continue current antibiotics. 2. Continue spontaneous breathing trial and evaluate for extubation. 3. Hold tube feeds while spontaneous breathing trial is in progress. 4. I agree with steroids, DVT prophylaxis, gastric acid suppression. Time spent in critical care management: 30 plus minutes. cc: Aj Denise MD
--- NOTE | 2018-05-27 11:24 | PROGRESS NOTE ---
DATE: 05/27/2018 SUBJECTIVE: This morning, Mr. Baeza remained fairly stable. He is actually going through spontaneous breathing trial for possible extubation. OBJECTIVE: Vital signs: Blood pressure is 117/60, pulse of 63, respirations 12 , temperature is 100.1. General: Mr. Baeza is a 72-year-old gentleman. He is in bed. He is not in any cardiopulmonary distress. He is still intubated. HEENT: Mucosa is pink and moist. Anicteric. Acyanotic. Neck: Supple. Chest: Good air entry bilateral. I did not hear any crepitations or rhonchi. Cardiovascular: Regular rate and rhythm. No murmurs , no rubs, no gallops. GI: Abdomen was soft. There is an old surgical scar on the right flank. There is also a baclofen generator pocket on the lower left abdomen. There is a suprapubic catheter in place. Extremities: No pedal edema. KENO CLERK: Patient is awake, nonverbal, because of the ET tube, but seems to be able to move his head and close and open the eyes. Pupils are equal and they are reactive. LABORATORY DATA: WBC is 6.88, hemoglobin is 10.8, platelet count of 187,000. Chemistry is also reviewed. Sodium is 147, potassium is 3.2, creatinine went up to 1.9. CURRENT MEDICATIONS: 1. Hydrocortisone. 2. Vancomycin per pharmacy per protocol. 3. Zosyn. DIAGNOSTIC STUDIES: Chest x-ray this morning shows well-expanded lungs. No pleural effusions. Mild increased interstitial markings. The lungs have an appearance similar to the prior. ASSESSMENT: 1. Acute on chronic hypercarbic respiratory failure. The patient pCO2 on admission was 58. This has gradually gone up to 108, that is when he got intubated on 05/23/2018 and transferred here. CO2 is now a lot better under the ventilator. 2. Acute hypoxemic respiratory failure, improved. The patient is currently undergoing SBT for extubation. 3. Septic shock, presumably combination of pneumonia with UTI. The patient is currently on antibiotics, including (Zosyn and vancomycin). Chest x-ray looks a lot better. We will have to change the current antibiotic because of the renal failure. 4. Providencia stuartii urinary tract infection, pansensitive. 5. Right middle lobe pneumonia. We will continue with antibiotics. We will discontinue the Zosyn and vancomycin because of the renal failure and put the patient now on cefepime with Zyvox. 6. Polysubstance use with UDS positive for opioids, oxycodone, tricyclic, benzodiazepines and cannabinoids noted. 7. Protein calorie malnutrition, improved. 8. Transient adrenal insufficiency, blood pressure has significantly improved with the addition of steroids. 9. Hypokalemia. We will replace. 10. Nonoliguric acute kidney injury. I think this is probably the combination of vancomycin and the Zosyn toxicities. Antibiotics have been discontinued. We will do a renal ultrasound to make sure there is no obstructive uropathy and also do the urine studies. We will repeat the renal functions for tomorrow. If it is getting any worse, we will get Nephrology involved. 11. 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 Patient is total care at home with the . So in general, Mr. Baeza was admitted to [facility] on 05/20/2018 and was transferred to [facility] on the because of worsening CO2 retention (acute on chronic hypercarbic respiratory failure). Patient was subsequently intubated and has been since. He is currently undergoing spontaneous breathing trial . Hopefully he will be able to be extubated. We will continue covering him with antibiotics and start working up on the renal failure. If the patient is successfully extubated today, I think we should still observe him in the ICU for another day and hopefully get him to the regular floor on Sunday and start his discharge process. cc: Vivek Mills MD MTDKamla
[2018-05-27 11:34] LABS: ALLEN TEST YES; BE 5.9 mmoll (-3.0-3.0); BLOOD TYPE ARTERIAL; HCO3-(ACT) 29.4 mmoll (20.0-26.0); METHB 1.1 % (0.0-1.5); O2(CT) 15.2 mL/dL (15.0-23.0); O2HB 92.9 % (95.0-99.0); PCO2(98.6) 44 mmHg (35-45); PO2(98.6) 72 mmHg (60-100); SAMPLE BLOOD; SAO2 95.5 % (95.0-100.0); THB 11.6 g/dL (11.5-17.4); pH(98.6) 7.45 (7.35-7.45)
[2018-05-27 11:35] LABS: MODALITY VENTILATOR
[2018-05-27] MEDS ORDERED: DILAUDID IV PRN (13:20)
[2018-05-27] MEDS ORDERED: BLISTEX MEDICATED BERRY LIP BALM TOP PRN (15:46)
--- NOTE | 2018-05-27 16:40 | Diag Imaging Result Doc PS360 ---
EXAM: US RENAL 2 (RETROPER) COMPLETE 05/27/2018 HISTORY: martina/arf TECHNIQUE: Renal ultrasound COMMENT: The kidneys are slightly hyperechoic. There is no evidence of mass or hydronephrosis. The right kidney is 11.3 x 4.5 x 4.3 cm the left is 10.3 x 5.2 x 5.2 cm. The bladder is not distended and there is a Solares catheter. IMPRESSION: No evidence of obstructive uropathy. The possibility of medical renal disease cannot be excluded. Electronically signed by Harpreet No 05/27/2018 4:37 PM
[2018-05-27] MEDS: DILAUDID IV PRN ×2 (19:43→23:00)
[2018-05-27] MEDS ORDERED: DILAUDID IV ONE (20:39)
[2018-05-27] MEDS: SODIUM CHLORIDE 0.9% INJ SCH (22:23)
[2018-05-28] MEDS: DUONEB (A & A) INH SCH ×6 (03:47→23:23)
[2018-05-28] MEDS: SOLU-CORTEF IV SCH ×3 (03:52→17:29)
[2018-05-28] MEDS: DILAUDID IV PRN ×5 (03:53→22:50)
[2018-05-28 04:51] LABS: ALLEN TEST YES; BE 8.1 mmoll (-3.0-3.0); BLOOD TYPE ARTERIAL; HCO3-(ACT) 31.3 mmoll (20.0-26.0); METHB 1.2 % (0.0-1.5); O2(CT) 6.2 mL/dL (15.0-23.0); O2HB 96.8 % (95.0-99.0); PO2(98.6) 122 mmHg (60-100); SAMPLE BLOOD; SAO2 99.7 % (95.0-100.0); THB 4.3 g/dL (11.5-17.4); pH(98.6) 7.38 (7.35-7.45)
[2018-05-28 04:52] LABS: MODALITY VENTIMASK; PCO2(98.6) 57 mmHg (35-45)
[2018-05-28] MEDS: LOVENOX SUBQ SCH (05:34)
[2018-05-28 06:21] LABS: BASO# 0.01 X1000 (0.0-0.2); BASO% 0.1 % (0.0-0.8); EOS# 0.06 X1000 (0.0-0.7); EOS% 0.9 % (0.0-10.0); HEMATOCRIT 33.2 % (42.0-52.0); HEMOGLOBIN 10.1 g/dL (14.0-18.0); LYMPH% 15.9 % (20.5-51.1); MCH 29.4 PG (27-31); MCHC 30.4 g/dL (33-37); MCV 96.8 FL (81-99); MONO# 0.81 X1000 (0.11-0.59); MONO% 11.7 % (1.7-9.3); MPV 10.1 FL (7.4-10.4); NEUT# 4.93 X1000 (1.4-6.5); NEUT% 71.4 % (42.2-75.2); PLT 173 X1000 (130-400); RBC 3.43 XMIL (4.7-6.1); RDW 14.6 % (11.5-14.5); WBC 6.91 X1000 (4.8-10.8)
--- NOTE | 2018-05-28 07:30 | Diag Imaging Result Doc PS360 ---
CHEST-PORTABLE - 05/28/2018 INDICATION: respiratory failure COMPARISON: 05/27/2018 FINDINGS: The endotracheal tube is no longer present. Stable nasogastric tube and left central line in good position. Lung volumes remain stable. There is slight worsening infiltrate or atelectasis at the right hilum. No pneumothorax or significant pleural effusion. IMPRESSION: Slight worsening infiltrate or atelectasis at the right hilum. Electronically signed by Ricardo Enriquez 05/28/2018 7:28 AM
[2018-05-28 07:41] LABS: CALCIUM 7.7 mg/dL (8.8-10.2); CREATININE 1.5 mg/dL (0.7-1.2)
[2018-05-28] MEDS: MUCOMYST 20% INH SCH ×2 (07:51→19:25)
[2018-05-28] MEDS ORDERED: POTASSIUM CHLORIDE 60 MEQ in NS 500 ML IV ONE (08:20)
[2018-05-28] MEDS: TYLENOL PO PRN ×3 (08:27→22:15)
[2018-05-28] MEDS: D5W 1,000 ML IV SCH ×3 (08:28→23:37)
--- NOTE | 2018-05-28 08:52 | PROGRESS NOTE ---
DATE: 05/28/2018 SUBJECTIVE: The patient has been successfully extubated yesterday. Now, requiring nasal cannula at 2 L/minute. No acute issues overnight. The patient reports feeling fine. OBJECTIVE: Vital Signs: Temperature 98.2, heart rate 65, respiratory rate 14, blood pressure 113/59, and O2 saturation 97% 3 L nasal cannula. General: This is a chronically ill-looking 72- year-old quadriplegic male lying in bed in no acute distress. HEENT: Head is normocephalic and atraumatic. Mucous membranes dry. Neck: No JVD noted. No carotid bruits. No lymphadenopathy. No thyromegaly. Cardiovascular: S1, S2 heard. No murmurs, gallops, or rubs. Regular rate and rhythm. Respiratory: There is minimal rhonchi seen both pulmonary bases, but patient is not using any accessory muscles or having work of breathing. Abdomen : Soft. Nontender to palpation. There is a baclofen pump in the left lower abdomen suprapubic catheter in place. Extremities: No clubbing, cyanosis, or edema. Neurological: Patient is awake, alert and incoherent speech. The patient is quadriplegic. Pupils are equal, round, and reactive to light and accommodation. LABORATORY DATA: White cell count 6.91, hemoglobin 10.1, hematocrit 33.2 and platelets 173,000. ABG shows pH 7.30, with pCO2 57, PO2 122 that was on Ventimask at FiO2 50%. Sodium 148, potassium 3.0 and creatinine 1.5. ASSESSMENT AND PLAN: 1. Acute on chronic hypercarbic respiratory failure. The patient has been successfully extubated yesterday. CO2 is getting a little bit higher. Patient has been explained in depth that he needs to use BiPAP when he is required. Actually, the reason why he was intubated was because he was refusing BiPAP because of worsening CO2 elevation, and that is why we needed to intubate. The patient acknowledged understanding. 2. Septic shock most likely secondary to pneumonia and urinary tract infection. Patient is on cefepime and Zyvox. We will continue with the same management. 3. Providencia stuartii UTI that appears pansensitive. We will continue with the same management. 4. Right middle lobe pneumonia. We will continue with Zyvox and cefepime. 5. Non oliguric acute kidney injury. That condition is getting better. I think that was secondary to vancomycin and Zosyn usage. Those antibiotics have been stopped and changed to Zyvox and Cefepime. 6. Hypokalemia. Potassium is 3.0 today so we will replace it today. 7. Protein-calorie malnutrition. We have held NG tube feedings, and see if this patient is awake like he is now. I think he can start having clear liquids, and advance as tolerated. 8. Spastic quadriplegia secondary to cervical cord injury. Aware. 9. Polysubstance abuse with UDS positive for opiates, oxycodone, tricyclic and benzo's. Aware. We will monitor this patient closely. 10. Disposition: I think at this point the patient isn't getting better. We will observe this patient 1 more day in the ICU. If he is getting better, we will transfer him to a regular floor. cc: Gilbert Marrero MD MTDD
[2018-05-28] MEDS: MAXIPIME 1 GM in NS 50 ML IV SCH ×2 (09:49→22:17)
[2018-05-28] MEDS: ZYVOX 600 MG/D5W 600 MG/300 ML IVPB IV SCH ×2 (09:49→22:17)
--- NOTE | 2018-05-28 20:23 | PULMONOLOGY PROGRESS NOTE ---
DATE: 05/28/2018 SUBJECTIVE: Patient is awake, alert, and conversant. He has no increased work of breathing off mechanical ventilation. He has a marginal to poor cough effort. OBJECTIVE: Vital signs: The patient has been afebrile for the last 24 hours. Blood pressure 118/53, heart rate 62, respiratory rate 15, oxygen saturation 98% on 50% FiO2. HEENT: Pupils are equal and reactive. Oropharynx is clear. Neck: Supple. Chest: Reveals scattered rhonchi bilaterally. Cardiac: S1, S2. Abdomen: Soft without hepatosplenomegaly. Extremities: Without edema. DIAGNOSTIC DATA: Chest x-ray reveals slight increased atelectasis at the right hilum with no change in the bases. No new microbiology data. White blood count 6.9, hemoglobin 10.1, platelet count 173,000. Sodium 148, potassium 3.0, chloride 107, bicarbonate 29, BUN 18, creatinine 1.5. IMPRESSION: A 52-year-old with: 1. Quadriplegia. 2. Pneumonia. 3. Ongoing tobacco use. 4. Acute hypoxemic and acute hypercapnic respiratory failure. He has tolerated extubation. 5. He has hypernatremia and has been initiated on D5W. RECOMMENDATION: 1. Continue current antibiotics. 2. Continue bronchial hygiene. 3. Begin diet. 4. Continue steroids and DVT prophylaxis. cc: Aj Denise MD
[2018-05-28] MEDS: PROTONIX IV SCH (22:16)
[2018-05-28] MEDS: SODIUM CHLORIDE 0.9% INJ SCH (22:17)
[2018-05-29] MEDS: SOLU-CORTEF IV SCH ×3 (02:00→18:04)
[2018-05-29] MEDS: DILAUDID IV PRN ×5 (02:01→20:11)
[2018-05-29] MEDS: DUONEB (A & A) INH SCH ×6 (03:52→23:22)
[2018-05-29 04:48] LABS: ALLEN TEST YES; BE 0.3 mmoll (-3.0-3.0); BLOOD TYPE ARTERIAL; HCO3-(ACT) 25.1 mmoll (20.0-26.0); METHB 1.4 % (0.0-1.5); O2(CT) 16.3 mL/dL (15.0-23.0); O2HB 94.6 % (95.0-99.0); PO2(98.6) 91 mmHg (60-100); SAMPLE BLOOD; SAO2 97.7 % (95.0-100.0); THB 12.2 g/dL (11.5-17.4); pH(98.6) 7.33 (7.35-7.45)
[2018-05-29 04:49] LABS: MODALITY VENTIMASK
[2018-05-29] MEDS: LOVENOX SUBQ SCH (05:03)
[2018-05-29 05:44] LABS: HEMATOCRIT 38.6 % (42.0-52.0); HEMOGLOBIN 11.8 g/dL (14.0-18.0); MCH 30.3 PG (27-31); MCHC 30.6 g/dL (33-37); MPV 10.7 FL (7.4-10.4); RBC 3.9 XMIL (4.7-6.1); RDW 14.2 % (11.5-14.5); WBC 5.33 X1000 (4.8-10.8)
[2018-05-29 05:58] LABS: CALCIUM 8.5 mg/dL (8.8-10.2); CREATININE 1.2 mg/dL (0.7-1.2); POTASSIUM 4.2 mmol/L (3.5-5.1)
[2018-05-29 06:16] LABS: MAGNESIUM 2.3 mg/dL (1.5-2.7); PHOSPHORUS 4.1 mg/dL (2.7-4.5)
[2018-05-29] MEDS: D5W 1,000 ML IV SCH ×2 (07:35→20:11)
[2018-05-29] MEDS: MUCOMYST 20% INH SCH ×2 (08:05→19:53)
[2018-05-29] MEDS: ZYVOX 600 MG/D5W 600 MG/300 ML IVPB IV SCH (09:08)
[2018-05-29] MEDS: MAXIPIME 1 GM in NS 50 ML IV SCH ×2 (09:08→21:48)
--- NOTE | 2018-05-29 09:16 | Diag Imaging Result Doc PS360 ---
EXAM: CHEST-PORTABLE 05/29/2018 HISTORY: respiratory failure TECHNIQUE: AP portable at 0510 COMMENT: There is an azygos lobe. There is a left internal jugular central venous catheter with its tip at the confluence of the brachiocephalic veins. There is ill-defined opacity in the medial left base which appears worse than on 05/28/2018. The inspiration is suboptimal. IMPRESSION: Questionable left lower lobe pneumonia. Electronically signed by Harpreet No 05/29/2018 9:13 AM
--- NOTE | 2018-05-29 09:40 | PROGRESS NOTE ---
DATE: 05/29/2018 SUBJECTIVE: The patient reports feeling breathing is much better. He is tolerating nasal cannula very well. Denies any fever or chills. OBJECTIVE: Vital Signs: Temperature 98.1 degrees, heart rate 67, respiratory rate 16, blood pressure 127/64, O2 saturation 97% on 3 L nasal cannula. General: This is a chronically ill- looking and quadriplegic 72-year-old male lying in bed, in no acute distress. HEENT: Head is normocephalic and atraumatic. Mucous membranes very dry. Coughing up pretty much greenish secretions. Neck: No JVD noted. No carotid bruits. No lymphadenopathy. No thyromegaly. Cardiovascular: S1, S2 heard. No murmurs, gallops, or rubs. Regular rate and rhythm. Respiratory: Rhonchi in both pulmonary bases. Patient not using any accessory muscles or having work of breathing. Abdomen: There is a baclofen pump in the left lower abdomen and also a suprapubic catheter in place. Extremities: No clubbing, cyanosis, or edema. Neurological: The patient is awake and alert, more talkative. The patient has quadriplegia. Pupils equal, round, reactive to light and accommodation. LABORATORY DATA: White cell count 5.33, hemoglobin 11.8, hematocrit 38.6, platelets 108,000. ABG shows pH 7.32 with pCO2 51, pO2 91. Normal BMP with normal renal function. ASSESSMENT AND PLAN: 1. Acute on chronic hypercarbic respiratory failure. The condition is getting better. Apparently, the patient had been tolerating BiPAP last night. At this point, will continue with the same management. 2. Septic shock most likely secondary to pneumonia and urinary tract infection. The patient continues on Zyvox and cefepime. Will continue with the same management. 3. Right middle lobe pneumonia. Patient on antibiotics as above, requiring the same amount of oxygen supplementation. Will continue with the same management. 4. Nonoliguric acute kidney injury, resolved. 5. Hypokalemia, resolved. 6. Protein-calorie malnutrition. The patient has had nasogastric tube removed and we have started him on regular food. Will continue with the same management. 7. 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 8. Polysubstance abuse with urine drug screen positive for opiates, oxycodone, tricyclics and benzodiazepines, aware. Will monitor this patient closely and avoid opiates if possible. DISPOSITION: I think this patient is getting better, so will transfer him out of the intensive care unit today. Will continue to monitor this patient closely. cc: Gilbert Marrero MD
[2018-05-29] MEDS ORDERED: LASIX IV ONE (20:52)
[2018-05-29] MEDS ORDERED: D5W 1,000 ML IV SCH (21:00)
[2018-05-29] MEDS: SODIUM CHLORIDE 0.9% INJ SCH (21:48)
[2018-05-29] MEDS: PROTONIX IV SCH (21:48)
[2018-05-30] MEDS: DILAUDID IV PRN ×7 (00:33→22:36)
--- NOTE | 2018-05-30 02:38 | PULMONOLOGY PROGRESS NOTE ---
DATE: 05/29/2018 SUBJECTIVE: The patient is awake, alert, and conversant. He has a marginal cough effort. He did not wear the BiPAP last evening due to claustrophobia. OBJECTIVE: Vital Signs: The patient has been afebrile for the last 24 hours. Blood pressure is 146/73, heart rate 78, respiratory rate 14, oxygen on 3 L nasal cannula. HEENT: Pupils are equal reactive. Oropharynx is clear. Neck: Supple. Chest: Reveals occasional rhonchi bilaterally. Cardiac: S1 and S2. Abdomen: Soft and without hepatosplenomegaly. Extremities: Reveal partial flexion contractures associated with quadriplegia. LABORATORIES: Chest x-ray reveals slight increased density at the left base. White blood count 5.33, hemoglobin 11.8, platelet count 108,000 was significantly decreased. Blood gas 7.33, pCO2 of 51, PO2 of 91 on Venturi mask. Sodium 138, potassium 4.2, chloride 99, bicarbonate 5, BUN 14, creatinine 1.2. IMPRESSION: The patient is a 72-year-old with quadriplegia, pneumonia, ongoing tobacco use, acute hypoxemic and acute hypercapnic respiratory failure, with new onset thrombocytopenia and slight increase in infiltrate at the left base. The patient has marginal diaphragm function and would benefit from a nocturnal diaphragm rest on BiPAP. It is hoped with coaching he will be able to tolerate the BiPAP. RECOMMENDATIONS: 1. DC IV fluids now that his hypernatremia has resolved. 2. Discontinue Zyvox. This is a common cause of thrombocytopenia and he currently has no evidence of a significant gram-positive infection. 3. Continue cefepime as a gram-negative organism is more likely. 4. Reattempt BiPAP at bedtime and p.r.n. 5. Follow up chest x-ray tomorrow. cc: Aj Densie MD
[2018-05-30] MEDS: SOLU-CORTEF IV SCH ×2 (02:46→15:55)
[2018-05-30] MEDS: DUONEB (A & A) INH SCH ×5 (03:36→19:48)
[2018-05-30] MEDS: LOVENOX SUBQ SCH (05:17)
[2018-05-30 05:27] LABS: ALLEN TEST YES; BLOOD TYPE ARTERIAL; HCO3-(ACT) 31.1 mmoll (20.0-26.0); METHB 1.1 % (0.0-1.5); O2(CT) 17.3 mL/dL (15.0-23.0); PO2(98.6) 104 mmHg (60-100); SAMPLE BLOOD; SAO2 98.8 % (95.0-100.0); THB 12.7 g/dL (11.5-17.4); pH(98.6) 7.37 (7.35-7.45)
[2018-05-30 05:28] LABS: MODALITY BI PAP; PCO2(98.6) 61 mmHg (35-45)
[2018-05-30 05:31] LABS: HEMATOCRIT 39.3 % (42.0-52.0); HEMOGLOBIN 12.1 g/dL (14.0-18.0); MCH 29.9 PG (27-31); MCHC 30.8 g/dL (33-37); MPV 10.6 FL (7.4-10.4); RBC 4.05 XMIL (4.7-6.1); RDW 13.9 % (11.5-14.5); WBC 8.39 X1000 (4.8-10.8)
[2018-05-30 06:02] LABS: AGAP 11; BUN 14 mg/dL (8-22); CALCIUM 7.9 mg/dL (8.8-10.2); CHLORIDE 98 mmol/L (98-107); COSMO 279; CREATININE 1.1 mg/dL (0.7-1.2); ESTIMATED GFR > 60; GLUCOSE 117 mg/dL (70-104); SODIUM 139 mmol/L (136-145); TCO2 30 mmol/L (25-35)
[2018-05-30 06:27] LABS: MAGNESIUM 2.1 mg/dL (1.5-2.7); PHOSPHORUS 3.2 mg/dL (2.7-4.5)
[2018-05-30] MEDS: MUCOMYST 20% INH SCH ×2 (07:47→19:48)
--- NOTE | 2018-05-30 08:14 | Diag Imaging Result Doc PS360 ---
CHEST-PORTABLE - 05/30/2018 INDICATION: respiratory failure COMPARISON: 05/29/2018 FINDINGS: Stable faint right perihilar infiltrate or atelectasis. No new abnormalities. There is a stable left central line. IMPRESSION: No change from prior. Electronically signed by Ricardo Enriquez 05/30/2018 8:11 AM
[2018-05-30] MEDS: POTASSIUM CHLORIDE 20 MEQ/SWI 20 MEQ/100 ML IVPB IV SCH ×2 (09:06→10:45)
[2018-05-30] MEDS: MAXIPIME 1 GM in NS 50 ML IV SCH ×2 (09:16→22:36)
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
[2018-05-30] MEDS: LIORESAL PO SCH ×3 (13:41→23:53)
--- NOTE | 2018-05-30 20:48 | PULMONOLOGY PROGRESS NOTE ---
DATE: 05/30/2018 SUBJECTIVE: The patient is awake, alert, and conversant. He wore his BiPAP last evening. His cough has marginally improved, and sounds less productive this morning. OBJECTIVE: Vital Signs: The patient has been afebrile for the last 24 hours. Blood pressure 113/48, heart rate 83, respiratory rate 18, oxygen saturation 100% on 3 L per nasal cannula. HEENT: Pupils are equal and reactive. Oropharynx is clear. Neck: Supple. Chest: Reveals occasional rhonchi, without wheezing or tactile fremitus. Cardiac: S1, S2. Abdomen: Soft, and without hepatosplenomegaly. Extremities: Unchanged. LABORATORIES: White blood count 8.39, hemoglobin 12.1, platelet count 161,000. Arterial blood gas reveals a pH 7.37, pCO2 of 61, PO2 of 104 on BiPAP. Sodium 139, potassium 3.0, chloride 98, bicarbonate 30, BUN 14, creatinine 1.1. Chest x-ray reveals a faint right perihilar infiltrate, which is stable. IMPRESSION: A 72-year-old with quadriplegia, pneumonia, ongoing tobacco use, acute hypoxemic and acute hypercapnic respiratory failure, with residual changes in the right chest. The patient continues to improve. He is tolerating p.o. intake. He is tolerating nocturnal BiPAP. RECOMMENDATIONS: 1. Continue current antibiotic regimen. His thrombocytopenia has resolved with the discontinuation of Zyvox. 2. Continue bronchial hygiene. 3. Continue nocturnal BiPAP. 4. The patient continues to improve. He is a candidate for transfer to the floor. cc: Aj Denise MD
[2018-05-30] MEDS: PROTONIX IV SCH (23:04)
[2018-05-30] MEDS: SODIUM CHLORIDE 0.9% INJ SCH (23:04)
[2018-05-31] MEDS: DUONEB (A & A) INH SCH ×7 (00:08→23:36)
[2018-05-31] MEDS: DILAUDID IV PRN ×3 (01:15→10:06)
[2018-05-31 04:18] LABS: ALLEN TEST NO; BE 10.6 mmoll (-3.0-3.0); BLOOD TYPE ARTERIAL; HCO3-(ACT) 33.1 mmoll (20.0-26.0); METHB 0.9 % (0.0-1.5); O2(CT) 17.6 mL/dL (15.0-23.0); O2HB 95.3 % (95.0-99.0); PO2(98.6) 81 mmHg (60-100); SAMPLE BLOOD; SAO2 97.5 % (95.0-100.0); THB 13.1 g/dL (11.5-17.4)
[2018-05-31 04:20] LABS: PCO2(98.6) 61 mmHg (35-45)
[2018-05-31 04:21] LABS: MODALITY CANNULA
[2018-05-31] MEDS: LIORESAL PO SCH ×3 (06:24→21:04)
[2018-05-31] MEDS: LOVENOX SUBQ SCH (06:25)
[2018-05-31] MEDS: SOLU-CORTEF IV SCH ×2 (06:26→19:55)
--- NOTE | 2018-05-31 06:33 | Diag Imaging Result Doc PS360 ---
EXAM: CHEST-PORTABLE HISTORY: respiratory failure TECHNIQUE: Chest single view COMPARISON: 05/30/2018 FINDINGS: The lungs are well expanded. The heart is not enlarged. No change in the left jugular line. The vessels are not distended. There are small right basilar infiltrates. No effusion identified. IMPRESSION: No interval improvement. Electronically signed by Adelso Palafox 05/31/2018 6:30 AM
[2018-05-31 07:02] LABS: MCH 30.2 PG (27-31); MCHC 30.8 g/dL (33-37); MPV 9.3 FL (7.4-10.4); RBC 3.98 XMIL (4.7-6.1); RDW 13.8 % (11.5-14.5); WBC 8.04 X1000 (4.8-10.8)
[2018-05-31 07:07] LABS: AGAP 11; BUN 12 mg/dL (8-22); CALCIUM 8.2 mg/dL (8.8-10.2); CHLORIDE 99 mmol/L (98-107); COSMO 284; ESTIMATED GFR > 60; GLUCOSE 114 mg/dL (70-104); POTASSIUM 2.9 mmol/L (3.5-5.1); SODIUM 142 mmol/L (136-145); TCO2 32 mmol/L (25-35)
[2018-05-31] MEDS: MUCOMYST 20% INH SCH ×2 (08:10→20:04)
[2018-05-31] MEDS: MAXIPIME 1 GM in NS 50 ML IV SCH (10:02)
[2018-05-31 10:32] LABS: PCO2(98.6) 51 mmHg (35-45)
[2018-05-31] MEDS: POTASSIUM CHLORIDE 60 MEQ in NS 500 ML IV SCH ×2 (10:50→19:54)
[2018-05-31] MEDS ORDERED: PROTONIX PO SCH (22:00)
[2018-06-01] MEDS: LIORESAL PO SCH (00:31)
[2018-06-01 01:11] VITALS: BP 136/61
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
== END 2018-06-01 03:16 | disposition home health service (06) | DRG 207 ==
LOC: P.MEDSURG 19:06 → P.ED 19:06 → SUATTDRO 05-21 14:54 → P.ICU 05-23 08:22 → ICU 05-23 17:49 → 4N 05-30 11:36
PROVIDERS: ATTEND Internal Medicine
CPT/HCPCS: 71010; 71045; 76770; 80048; 80053; 80104; 80301; 80305; 81001; 82533; 82570; 82805; 83605; 83735; 84100; 84300; 84443; 85025; 85027; 87040; 87070; 87077; 87088; 87186; 87205; 87275; 87276; 87804; 89220; 93005; 94002; 94003; 94640; 94660; 94761; 94799; 99285; A9270; C9113; G0431; G0434; G0477; J0330; J0456; J0692; J0696; J1170; J1650; J1720; J1940; J2020; J2250; J2543; J3370; J3475; J3480; J7030; J7040; J7050; J7070; S0164

== ENCOUNTER 2018-08-06 15:03 | Inpatient (IN) ==
[2018-08-06] MEDS ORDERED: NS 1,000 ML IV ONE (15:25)
--- NOTE | 2018-08-06 15:41 | Diag Imaging Result Doc PS360 ---
EXAM: CHEST-PORTABLE HISTORY: cough TECHNIQUE: Semiupright portable chest single view COMPARISON: 05/31/2018 FINDINGS: The lungs are well expanded. The heart is not enlarged. The vessels are not distended. There are no infiltrates. No effusion identified. There has been surgery to the lower neck. IMPRESSION: No pneumonia. Electronically signed by Adelso Palafox 08/06/2018 3:39 PM
[2018-08-06 15:46] LABS: BASO# 0.02 X1000 (0.0-0.2); BASO% 0.2 % (0.0-0.8); EOS# 0.01 X1000 (0.0-0.7); EOS% 0.1 % (0.0-10.0); HEMATOCRIT 39.9 % (42.0-52.0); HEMOGLOBIN 11.6 g/dL (14.0-18.0); IMM GRAN# 0.03 X1000 (0.0-0.04); IMM GRAN% 0.3 % (0.0-0.5); LYMPH# 0.52 X1000 (1.2-3.4); LYMPH% 5.1 % (20.5-51.1); MCH 28.9 PG (27-31); MCHC 29.1 g/dL (33-37); MCV 99.5 FL (81-99); MONO# 1.29 X1000 (0.11-0.59); MONO% 12.7 % (1.7-9.3); NEUT# 8.26 X1000 (1.4-6.5); NEUT% 81.6 % (42.2-75.2); PLT 273 X1000 (130-400); RBC 4.01 XMIL (4.7-6.1); RDW 15.1 % (11.5-14.5); WBC 10.13 X1000 (4.8-10.8)
[2018-08-06 16:28] LABS: AGAP 8; ALB/GLOB RATIO 0.8; ALBUMIN 3.1 g/dL (3.5-5.0); ALKALINE PHOSPHATASE 90 U/L (32-122); BUN 15 mg/dL (8-22); CALCIUM 9.2 mg/dL (8.8-10.2); CHLORIDE 95 mmol/L (98-107); COSMO 284; CREATININE 0.6 mg/dL (0.7-1.2); ESTIMATED GFR > 60; GLUCOSE 134 mg/dL (70-104); GOT 11 U/L (10-34); GPT 7 U/L (10-44); SODIUM 141 mmol/L (136-145); TCO2 38 mmol/L (25-35); TOTAL BILIRUBIN 0.33 mg/dL (0.20-1.00); TOTAL PROTEIN 7.2 g/dL (6.3-8.3)
[2018-08-06] MEDS ORDERED: MUCOMYST 20% INH ONE (17:45)
[2018-08-06] MEDS ORDERED: DUONEB (A & A) INH ONE (17:46)
[2018-08-06] MEDS ORDERED: DUONEB (A & A) ONE (17:48)
[2018-08-06] MEDS ORDERED: MUCOMYST 20% ONE (17:59)
--- NOTE | 2018-08-06 18:04 | Diag Imaging Result Doc PS360 ---
EXAM: CT ANGIOGRM PULMONARY ARTERIES HISTORY: low SPO2, tachycardia and cough TECHNIQUE: CT chest with intravenous contrast. Pulmonary arterial protocol with MIP images. COMPARISON: None. FINDINGS: No pleural effusions. The heart is borderline mildly prominent. No thoracic aortic aneurysm or dissection. Prominent atherosclerosis. Normal opacification of the pulmonary arteries and their major branches. There are small calcified right hilar lymph nodes. There are small posterior basilar infiltrates or atelectasis with small air bronchograms. There is pulmonary edema. There is a 12 mm hypodense nodule adjacent to the left fissure within the left upper lobe on image 63. This likely represents a suprahilar lymph node. IMPRESSION: 1.No pulmonary emboli 2.Small basilar infiltrates and/or atelectasis 3.Pulmonary edema 4.Small left upper lobe nodule versus perihilar lymph node This exam was performed using automated exposure control, adjustment of mA or kV according to patient size, and/or use of iterative reconstruction technique. Electronically signed by Adelso Palafox 08/06/2018 6:01 PM
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
[2018-08-06 19:51] LABS: FREE T4 0.99 ng/dL (0.93-1.70)
[2018-08-06 20:00] LABS: URINE SOURCE CATH
[2018-08-06 20:06] LABS: BILIRUBIN URINE NEGATIVE (NEGATIVE); BLOOD URINE LARGE (NEGATIVE); COLOR YELLOW; GLUCOSE URINE NEGATIVE (NEGATIVE); KETONE URINE 60 mg/dL (NEGATIVE); LEUKOCYTES URINE SMALL (NEGATIVE); NITRITE URINE NEGATIVE (NEGATIVE); PH URINE 5.5; PROTEIN URINE 30 mg/dL (NEGATIVE); SP GRAVITY URINE 1.045; TURBIDITY URINE CLEAR (CLEAR); UROBILINOGEN URINE NORMAL (NORMAL)
[2018-08-06 20:07] LABS: UR EPITHELIAL CELLS <10 /HPF (<10); URINE BACTERIA NEGATIVE /HPF; URINE RBC TNTC /HPF (<10); URINE WBC 20-40 /HPF (<10)
[2018-08-06] MEDS ORDERED: TYLENOL PO PRN (20:54)
[2018-08-06] MEDS ORDERED: VANCOMYCIN IV PER PHARMACY MISC SCH (20:54)
[2018-08-06] MEDS: DUONEB (A & A) INH SCH ×2 (21:00→23:30)
[2018-08-06] MEDS ORDERED: VANCOMYCIN 1,500 MG in NS 500 ML IV ONE (22:00)
[2018-08-06] MEDS: NS 1,000 ML IV SCH (23:38)
[2018-08-06] MEDS: ZOSYN 3.375 GM in NS 50 ML IV SCH (23:42)
[2018-08-06] MEDS: LOVENOX SUBQ SCH (23:49)
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
[2018-08-07 02:47] LABS: BASO# 0.02 X1000 (0.0-0.2); BASO% 0.2 % (0.0-0.8); EOS# 0.01 X1000 (0.0-0.7); EOS% 0.1 % (0.0-10.0); HEMATOCRIT 40.8 % (42.0-52.0); HEMOGLOBIN 12.2 g/dL (14.0-18.0); IMM GRAN# 0.02 X1000 (0.0-0.04); IMM GRAN% 0.2 % (0.0-0.5); LYMPH# 1.08 X1000 (1.2-3.4); LYMPH% 10.5 % (20.5-51.1); MCH 29.6 PG (27-31); MCHC 29.9 g/dL (33-37); MONO# 1.06 X1000 (0.11-0.59); MONO% 10.3 % (1.7-9.3); MPV 9.6 FL (7.4-10.4); NEUT# 8.06 X1000 (1.4-6.5); NEUT% 78.7 % (42.2-75.2); PLT 246 X1000 (130-400); RBC 4.12 XMIL (4.7-6.1); RDW 15.2 % (11.5-14.5); WBC 10.25 X1000 (4.8-10.8)
[2018-08-07] MEDS: DUONEB (A & A) INH SCH ×6 (03:38→23:33)
[2018-08-07] MEDS: ZOSYN 3.375 GM in NS 50 ML IV SCH ×4 (03:43→22:13)
[2018-08-07] MEDS ORDERED: CALMOSEPTINE OINTMENT TOP PRN (07:30)
--- NOTE | 2018-08-07 08:23 | EKG Report ---
Test Performed on : 08/06/2018 3:44:15 PM Test Reason : ED. NO EKG ORDER FOR MUSE Blood Pressure : / mmHG Vent. Rate : 086 BPM Atrial Rate : 086 BPM P-R Int : 160 ms QRS Dur : 066 ms QT Int : 348 ms P-R-T Axes : 060 -27 068 degrees QTc Int : 416 ms Normal sinus rhythm. Possible Left atrial enlargement Nonspecific ST abnormality Abnormal ECG When compared with ECG of 20-MAY-2018 20:24, No significant change was found Unconfirmed Result
[2018-08-07] MEDS: SANTYL OINT TOP SCH (08:30)
[2018-08-07] MEDS ORDERED: COLACE PO PRN (09:23)
[2018-08-07] MEDS ORDERED: ARGININE PO SCH (09:30)
[2018-08-07] MEDS ORDERED: GLUTAMINE PO SCH (09:30)
[2018-08-07] MEDS ORDERED: CALCIUM HMB PO SCH (09:30)
[2018-08-07] MEDS ORDERED: TRINTELLIX PO SCH ×2 (09:30→21:00)
[2018-08-07] MEDS: OXY IR PO PRN ×2 (09:54→18:02)
[2018-08-07] MEDS: LIORESAL PO SCH ×3 (09:54→22:12)
[2018-08-07] MEDS: NEURONTIN PO SCH ×3 (14:00→22:11)
[2018-08-07] MEDS: NS 1,000 ML IV SCH (15:15)
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
[2018-08-07] MEDS ORDERED: ZOCOR PO SCH (21:00)
[2018-08-07] MEDS ORDERED: SEROQUEL PO SCH (21:00)
[2018-08-07] MEDS: SENOKOT PO SCH (22:12)
[2018-08-07] MEDS: LOVENOX SUBQ SCH (22:13)
[2018-08-08] MEDS: OXY IR PO PRN ×3 (01:23→15:32)
[2018-08-08] MEDS: DUONEB (A & A) INH SCH ×4 (03:35→15:10)
[2018-08-08] MEDS: NS 1,000 ML IV SCH ×3 (04:50→09:19)
[2018-08-08] MEDS: ZOSYN 3.375 GM in NS 50 ML IV SCH ×3 (05:26→14:39)
[2018-08-08] MEDS: LIORESAL PO SCH ×3 (05:27→14:38)
[2018-08-08] MEDS ORDERED: SYNTHROID PO SCH (07:00)
[2018-08-08] MEDS: NEURONTIN PO SCH ×2 (09:11→14:38)
[2018-08-08] MEDS: SENOKOT PO SCH (09:11)
[2018-08-08] MEDS ORDERED: VANCOMYCIN 1,200 MG in NS 250 ML IV SCH (10:00)
[2018-08-08] MEDS: SANTYL OINT TOP SCH (11:02)
[2018-08-08] MEDS ORDERED: G.I. COCKTAIL PO ONE (11:38)
--- NOTE | 2018-08-08 11:46 | EKG Report ---
Test Performed on : 08/08/2018 11:34:44 AM Test Reason : chest pain Blood Pressure : / mmHG Vent. Rate : 071 BPM Atrial Rate : 071 BPM P-R Int : 172 ms QRS Dur : 072 ms QT Int : 372 ms P-R-T Axes : 054 -13 072 degrees QTc Int : 404 ms Sinus rhythm. with premature supraventricular complexes. Nonspecific T wave abnormality Abnormal ECG When compared with ECG of 06-AUG-2018 15:44, (Unconfirmed) premature supraventricular complexes. are now present Nonspecific T wave abnormality, worse in Anterior leads Confirmed by Jackie MCCOY, Patrick ([id number]) on 08/08/2018 6:06:57 PM
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
[2018-08-08 16:58] VITALS: BP 123/42
[2018-08-09] MEDS ORDERED: VANCOMYCIN 1,200 MG in NS 250 ML IV SCH (11:00)
== END 2018-08-08 18:07 | disposition home health service (06) | DRG 204 ==
LOC: SUPCPDRO → ED 15:03 → 3N 20:27
PROVIDERS: ATTEND Emergency Medicine
CPT/HCPCS: 51702; 71010; 71045; 71275; 80053; 81001; 82607; 82746; 83605; 84134; 84439; 84443; 85025; 87040; 87077; 87088; 87186; 93005; 93010; 94640; 94761; 94799; 99285; A9270; J1650; J2543; J3370; J7030; J7040; J7050; Q9967